=== PATIENT | female | born 1970 | race African-American/Black ===

== ENCOUNTER 2018-02-03 11:13 | Emergency (ER) | payer SELFPAY ==
[~2018-02-03 11:13] MED LIST: MACR100C PO
[2018-02-03 11:39] VITALS: BP 170/81; PULSE 62; RESP 18; TEMP 97.5; O2SAT 99
--- NOTE | 2018-02-03 12:15 | RADRPT ---
EXAM DATE/TIME: 02/03/2018 12:06 [place] COMPARISON: No previous studies available for comparison. INDICATIONS : Cough. MEDICAL HISTORY : None. SURGICAL HISTORY : None. ENCOUNTER: Initial ACUITY: 2 weeks PAIN SCORE: 0/10 LOCATION: Bilateral chest FINDINGS: PA and lateral views of the chest demonstrate the lungs to be symmetrically aerated without evidence of mass, infiltrate or effusion. The cardiomediastinal contours are unremarkable. Osseous structure s are intact. CONCLUSION: No acute disease. Alfredito Shepard MD FACR on February 03, 2018 at 12:13 Board Certified Radiologist. This report was verified electronically.
[2018-02-03] MEDS ORDERED: BENZ100 PO (14:33)
[2018-02-03] MEDS ORDERED: FEXO1TAB97 PO (14:33)
[2018-02-03] MEDS ORDERED: FLUT50SP EACH NARE (14:33)
--- NOTE | 2018-02-03 14:33 | PD ---
HPI Chief Complaint: Respiratory Symptoms Time Seen by Provider: 14:14 Travel History International Travel<30 days: No Contact w/Intl Traveler<30days: No Traveled to known affect area: No History of Present Illness HPI 47-year-old female, current smoker presents to the ED for evaluation of 2 week history of sinus congestion, clear rhinorrhea, sore throat and nonproductive cough. She denies headache, ear pain, fevers, chills, nausea, vomiting. She denies sick contacts. She did not receive this years flu vaccine. She denies history of seasonal allergies. No treatment attempted at home. PFSH Past Medical History ?: Not Social History Alcohol Use: No Tobacco Use: Yes Substance Use: No Allergies-Medications (Allergen,Severity, Reaction): Coded Allergies: No Known Allergies (Unverified , 12/03/14) Reported Meds & Prescriptions Reported Meds & Active Scripts Active Tessalon Perles (Benzonatate) 100 Mg Cap 200 Mg PO TID PRN Concepcion-D 24 Hour Allergy (Fexofenadine-Pseudoephedrine ER 24 HR) 180-240 Jay 1 Tab PO DAILY Fluticasone Nasal Cedar 50 Mcg/Act Naspr 100 Mcg EACH NARE BID 14 Days 50 mcg/spray Review of Systems Except as stated in HPI: all other systems reviewed are Neg Physical Exam Narrative GENERAL: Well-nourished, well-developed petite AA female in no acute distress. SKIN: Warm and dry. HEAD: Normocephalic. Atraumatic. EYES: No scleral icterus. No injection or drainage. PERRLA. EOMI. ENT: Pearly andersen tympanic membranes bilaterally. Nasal mucosa is moist, boggy. Oropharynx mild posterior erythema. Cobblestoning present. No edema or exudate. NECK: Supple, trachea midline. No JVD or lymphadenopathy. CARDIOVASCULAR: Regular rate and rhythm without murmurs, gallops, or rubs. RESPIRATORY: Breath sounds clear and equal bilaterally. No accessory muscle use. GASTROINTESTINAL: Abdomen soft, non-tender, nondistended. + Bowel sounds MUSCULOSKELETAL: No cyanosis, or edema. BACK: Nontender without obvious deformity. No CVA tenderness. Data Data Last Documented VS Vital Signs Date Time Temp Pulse Resp B/P (MAP) Pulse Ox O2 Delivery O2 Flow Rate FiO2 02/03/18 11:39 97.5 62 18 170/81 (110) 99 Orders Orders Chest, Pa & Lat (02/03/18 ) Ed Discharge Order (02/03/18 14:14) MDM Medical Decision Making Medical Screen Exam Complete: Yes Emergency Medical Condition: Yes Differential Diagnosis Viral syndrome versus upper airway cough syndrome versus smoker's cough versus allergic rhinitis versus other Narrative Course 47-year-old female, current smoker presents to the ED for evaluation of 2 week history of sinus congestion, clear rhinorrhea, sore throat and nonproductive cough. She denies headache, ear pain, fevers, chills, nausea, vomiting. She denies sick contacts. She did not receive this years flu vaccine. She denies history of seasonal allergies. Patient afebrile on presentation. On exam there is boggy nasal mucosa, mild posterior oropharyngeal erythema and cobblestoning. Chest CTA B. X-ray reveals no acute cardiopulmonary disease. This is allergic rhinitis, postnasal drip and a smoker. Patient's prescribed daily antihistamine/decongestant, intranasal steroids and a few doses of Tessalon Perles. She is instructed to quit smoking, take the medications as prescribed, follow with ENT. She is stable and discharged home. Diagnosis Primary Impression: Allergic rhinitis Qualified Codes: J30.9 - Allergic rhinitis, unspecified Additional Impressions: Upper airway cough syndrome Smoker Referrals: Ear / Nose / Throat Specialist Additional Instructions: Rest, hydrate. Stop smoking! Take Concepcion daily as prescribed. Intranasal steroid spray 2 puffs in each nostril daily as prescribed. Benzonatate every 8 hours to reduce urge to cough. Follow-up with the staff nuclear medicine technologist. Return to the ED for worsening symptoms or any urgent or emergent medical condition. Med/Other Pt SpecificInfo: Prescription(s) given Scripts Benzonatate (Tessalon Perles) 100 Mg Cap 200 MG PO TID Y for COUGH, #20 CAP 0 Refills Prov: Zay Garcia MD 02/03/18 Fexofenadine-Pseudoephedrine ER 24 HR (Concepcion-D 24 Hour Allergy) 180-240 Jay 1 TAB PO DAILY for Allergy Management, #30 TAB 0 Refills Prov: Zay Garcia MD 02/03/18 Fluticasone Nasal Cedar (Fluticasone Nasal Cedar) 50 Mcg/Act Naspr 100 MCG EACH NARE BID for Allergy Management for 14 Days, #1 BOTTLE 0 Refills 50 mcg/spray Prov: Zay Garcia MD 02/03/18 Disposition: 01 DISCHARGE HOME Condition: Stable Tameka Crenshaw Feb 03, 2018 14:32
== END 2018-02-03 14:45 | disposition home or self-care (01) ==
LOC: NEPK 11:13
DX: J30.9 Allergic rhinitis, unspecified (principal); R05 Cough; Z72.0 Tobacco use
CPT/HCPCS: 71046; 99283